=== PATIENT | male | born 1985 | race Caucasian/White ===

== ENCOUNTER 2021-05-07 20:47 | Emergency (ER) | payer OTHER, MEDICAID ==
[~2021-05-07] VITALS: Ht 167.6 cm; Wt 167.0 kg
[2021-05-07] MEDS ORDERED: SODIUM CHLORIDE 0.9% 1,000 ML IV ONE ×2 (21:00→22:15)
[2021-05-07] MEDS ORDERED: LORAZEPAM 2MG/ML CPJ IV ONE ×3 (21:00→22:45)
[2021-05-07 21:13] LABS: BASOPHILS % 0.7 % (0.0-2.0); EOSINOPHILS % 0.3 % (0.0-5.0); HEMOGLOBIN. 14.2 g/dL (14.0-18.0); LYMPHOCYTES % 17.8 % (20.0-50.0); MEAN CORPUSCULAR HEMOGLOBIN 29.2 pg (28.0-32.0); MEAN CORPUSCULAR VOLUME 86.3 fL (80.0-94.0); MEAN PLATELET VOLUME 7.2 fl (7.4-10.4); NEUTROPHILS % 73.2 % (40.0-76.0); PLATELET 342 x1000/uL (130-400); RED BLOOD CELL COUNT 4.86 mill/uL (4.7-6.1); RED CELL DISTRIBUTION WIDTH 14.4 % (11.6-14.6)
[2021-05-07 21:20] LABS: CHLORIDE 107 mEq/L (98-107)
[2021-05-07 21:24] LABS: ETHANOL BLOOD < 10 mg/dL
[2021-05-07 22:07] LABS: *BARBITURATES SCREEN URINE NEGATIVE (NEGATIVE); *BENZODIAZEPINES SCREEN URINE NEGATIVE (NEGATIVE)
[2021-05-07 22:08] LABS: *AMPHETAMINES SCREEN URINE PRESUMTIVE POSITIVE (NEGATIVE); *COCAINE SCREEN URINE NEGATIVE (NEGATIVE); CANNABINOID URINE SCREEN NEGATIVE (NEGATIVE); METHADONE URINE SCREEN NEGATIVE (NEGATIVE); OPIATES URINE SCREEN NEGATIVE (NEGATIVE); PHENCYCLIDINE URINE SCREEN NEGATIVE (NEGATIVE)
[2021-05-07 22:30] LABS: CLARITY URINE CLEAR (CLEAR); COLOR URINE YELLOW (YELLOW); KETONES URINE NEGATIVE (NEGATIVE); LEUKOCYTE ESTERASE URINE NEGATIVE (NEGATIVE); NITRITE URINE NEGATIVE (NEGATIVE); OCCULT BLOOD URINE 2+ (NEGATIVE); PROTEIN URINE TRACE (NEGATIVE)
[2021-05-07 23:03] VITALS: BP 132/86
[2021-05-07 23:15] LABS: CREATINE KINASE 154 IU/L (39-308)
== END 2021-05-08 00:05 | disposition home or self-care (01) ==
LOC: ER 20:47
DX: T43.621A Poisoning by amphetamines, accidental (unintentional), initial encounter (principal); F15.188 Other stimulant abuse with other stimulant-induced disorder; R00.2 Palpitations; I48.92 Unspecified atrial flutter; I44.39 Other atrioventricular block; R03.0 Elevated blood-pressure reading, without diagnosis of hypertension; Y92.89 Other specified places as the place of occurrence of the external cause; Z88.8 Allergy status to other drugs, medicaments and biological substances
CPT/HCPCS: 36415; 80053; 80305; 80320; 81003; 82550; 84484; 85025; 93005; 96361; 96374; 96376; 99284; J2060; J7030; G0480

== ENCOUNTER 2021-05-09 20:47 | Emergency (ER) | payer OTHER ==
[~2021-05-09] VITALS: Ht 170.2 cm; Wt 66.0 kg
[2021-05-09 21:10] VITALS: BP 120/93
== END 2021-05-09 23:00 | disposition left against medical advice (07) ==
LOC: ER 20:47
DX: R68.89 Other general symptoms and signs (principal); Z53.21 Procedure and treatment not carried out due to patient leaving prior to being seen by health care provider